=== PATIENT | female | born 1945 | race Caucasian/White ===

== ENCOUNTER 2019-11-28 09:56 | Emergency (ER) | payer OTHER ==
[~2019-11-28] VITALS: Ht 152.4 cm; Wt 72.1 kg
[2019-11-28] MEDS ORDERED: HYDR-4384 PO (10:12)
[2019-11-28] MEDS ORDERED: METF-440 PO (10:12)
[2019-11-28] MEDS ORDERED: HYDR-4354 PO (10:12)
[2019-11-28] MEDS ORDERED: TIOT18CA3 IH (10:12)
[2019-11-28] MEDS ORDERED: ALBU18HF2 IH (10:12)
[2019-11-28] MEDS ORDERED: AMIO200T4 PO (10:12)
[2019-11-28] MEDS ORDERED: BLOO-668 IN (10:12)
[2019-11-28] MEDS ORDERED: FURO-144 PO (10:12)
[2019-11-28] MEDS ORDERED: APIX2.5T PO (10:12)
[2019-11-28] MEDS ORDERED: BUDE10.2 IH (10:12)
[2019-11-28] MEDS ORDERED: PRED20TA PO (10:12)
[2019-11-28] MEDS ORDERED: ALBU2.5V13 IH (10:12)
[2019-11-28] MEDS ORDERED: IPRATROPIUM NEB FS 0.5 MG/2.5 ML AMPUL.NEB ONE (10:46)
[2019-11-28] MEDS ORDERED: ALBUTEROL FS 2.5 MG/3 ML VIAL.NEB ONE (10:46)
[2019-11-28 10:49] LABS: BASOPHILS % (AUTO) 0.4 % (0.0-2.0); EOSINOPHILS % (AUTO) 0.6 % (0.0-6.0); HEMATOCRIT 39 % (33-45); HEMOGLOBIN 12.7 g/dL (11.5-14.8); LYMPHOCYTES % (AUTO) 12.1 % (20.0-44.0); MEAN CORPUSCULAR HGB CONC 32 g/dl (31.0-36.0); MEAN CORPUSCULAR VOLUME 89 fL (82-100); MONOCYTES # (AUTO) 0.4 /CMM (0.1-1.30); MONOCYTES % (AUTO) 4.5 % (2.0-12.0); NEUTROPHILS # (AUTO) 6.9 /CMM (1.8-8.9); NEUTROPHILS % (AUTO) 82.4 % (43.0-81.0); PLATELET COUNT (AUTO) 327 /CMM (150-450); RED BLOOD CELL COUNT(AUTO) 4.41 MIL/uL (4.0-5.2); WHITE BLOOD COUNT (AUTO) 8.4 K/uL (4.3-11.0)
[2019-11-28] MEDS ORDERED: IPRATROPIUM NEB FS 0.5 MG/2.5 ML AMPUL.NEB NEB ONE (11:00)
[2019-11-28] MEDS ORDERED: ALBUTEROL FS 2.5 MG/3 ML VIAL.NEB NEB ONE (11:00)
[2019-11-28 11:07] LABS: APPEARANCE,URINE Clear (CLEAR); BILIRUBIN,URINE Negative (NEGATIVE); BLOOD, URINE Negative Ery/uL (NEGATIVE); COLOR,URINE Yellow (YELLOW); KETONES,URINE Negative (NEGATIVE); LEUKOCYTE ESTERASE ,URINE Trace (NEGATIVE); NITRITE, URINE Negative (NEGATIVE); PH,URINE 5.5 (5.0-8.0); PROTEIN,URINE Negative (NEGATIVE); UGLUCOSE Negative (NEGATIVE); UROBILINOGEN,URINE 0.2 EU/dL (0.2)
[2019-11-28 11:16] LABS: CALCIUM, SERUM 10.4 mg/dL (8.5-10.1); CARBON DIOXIDE 30 mmol/L (21-32); CHLORIDE 102 mmol/L (98-107); CREATININE 0.8 mg/dL (0.6-1.3); GLUCOSE 149 mg/dL (74-106); POTASSIUM 3.4 mmol/L (3.5-5.1); SODIUM SERUM 143 mmol/L (136-145); UREA NITROGEN, BLOOD 22 mg/dL (7-18)
[2019-11-28 11:22] LABS: ALANINE AMINOTRANSFERASE 30 U/L (12-78); ALBUMIN 3.9 g/dL (3.4-5.0); ALKALINE PHOSPHATASE 88 U/L (46-116); ASPARTATE AMINOTRANSFERASE 25 U/L (15-37); BILIRUBIN,DIRECT 0.1 mg/dL (0.0-0.2); BILIRUBIN,TOTAL 0.5 mg/dL (0.2-1.0); TOTAL PROTEIN, SERUM 8.4 g/dL (6.4-8.2)
--- NOTE | 2019-11-28 11:22 | NUR ---
TOOK OVER PT CARE. PT AAOX4. [id number], from longterm, cough and congestion x 1 week. Albuterol 5mg given on scene 92% on RA, 97 % after Treatment. Placed on monitor and pulse ox.
[2019-11-28 11:31] LABS: RBC,URINE 0-2 /HPF (0-2)
[2019-11-28 11:32] LABS: BACTERIA,URINE Few /HPF (None Seen); SQUAMOUS EPITHELIAL CELL,UR Few /HPF (None Seen)
[2019-11-28] MEDS ORDERED: methylPREDNISolone SOD SUCC 125 MG/2ML VIAL ONE (11:46)
--- NOTE | 2019-11-28 11:51 | NUR ---
CALLED NURSING FOR TELE BED.
[2019-11-28] MEDS ORDERED: IV NS 0.9% 1,000 ML BAG IV ONE ×2 (12:00)
[2019-11-28] MEDS ORDERED: methylPREDNISolone SOD SUCC 125 MG/2ML VIAL IV ONE (12:00)
[2019-11-28] MEDS ORDERED: PIPERACILLIN /TAZOBACTAM 3.375 G in IV D5W 50 ML IV ONE (12:00)
--- NOTE | 2019-11-28 12:15 | NUR ---
FOR [facility] [phone]. GENERAL NUMBER FOR IS [phone].
--- NOTE | 2019-11-28 12:21 | NUR ---
NURSING SUP GAVE TELE BED 313-2.
--- NOTE | 2019-11-28 13:01 | NUR ---
Engineering Model Maker at bedside
--- NOTE | 2019-11-28 13:06 | NUR ---
spoke with will, patient refused to go to [facility], now going to [facility] instead and patient agreed. facesheet and clinicals faxed to [phone] as requested
--- NOTE | 2019-11-28 13:08 | NUR ---
sandwich ordered from cafeteria as requested
--- NOTE | 2019-11-28 13:11 | NUR ---
CALLED ROMELIA PHAM. REINIER WAS PLACED FOR [facility]. AUTH NUMBER [id number]. NUMBER FOR ACTIVATION OF AMBULANCE [phone].
--- NOTE | 2019-11-28 13:44 | NUR ---
PATIENT RESTING COMFORTABLY. EATING.
--- NOTE | 2019-11-28 15:45 | NUR ---
CM WILL CALLED. PT IS GOING TO [address] NUMBER FOR REPORT IS [phone]. Addendum: 11/28/19 at 1553 by JOSE LUIS CM CALLED AND BED ASSIGNMENT WAS INCORRECT. WILL CALL BACK WITH CORRECT INFO AND BED ASSIGNMENT. AMBULANCE PLACED ON WILL CALL, ETA 1730.
[2019-11-28 15:54] VITALS: BP 151/80
--- NOTE | 2019-11-28 16:45 | NUR ---
FOLLOW UP WITH CM WILL AT [facility]. STILL NO TRANSFER INFO FOR PT. WILL CALL BACK FOR ROOM ASSIGNMENT.
--- NOTE | 2019-11-28 16:49 | NUR ---
CM WILL CALLED BACK. PT WILL END UP GOING TO BED ASSIGNMENT 520-B. NUMBER FOR REPORT [phone]. [facility] ETA 1730.
[2019-11-28] MEDS ORDERED: HYDROCODONE/APAP 5/325MG 1 EACH TABLET ONE (16:51)
[2019-11-28] MEDS ORDERED: HYDROCODONE/APAP 5/325MG 1 EACH TABLET PO ONE (17:00)
--- NOTE | 2019-11-28 17:09 | NUR ---
REPORT GIVEN TO TOÑO KING FOR [facility]
--- NOTE | 2019-11-28 17:36 | NUR ---
REPORT GIVEN TO CHERYL TRA[facility]
== END 2019-11-28 18:05 | disposition short-term general hospital (02) ==
LOC: ER 09:59
DX: L03.116 Cellulitis of left lower limb (principal); L03.115 Cellulitis of right lower limb; J44.1 Chronic obstructive pulmonary disease with (acute) exacerbation; R09.02 Hypoxemia; E87.2 Acidosis; I12.9 Hypertensive chronic kidney disease with stage 1 through stage 4 chronic kidney disease, or unspecified chronic kidney disease; N18.9 Chronic kidney disease, unspecified; Z88.2 Allergy status to sulfonamides
CPT/HCPCS: 36415; 71045; 80048; 80076; 81001; 83605 ×2; 84145; 84484; 85025; 85730; 87040 ×2; 87086; 87804 ×2; 93005 ×2; 94640; 96374; 99285; J2543; J2930; J7030; J7060; 81000-TC

== ENCOUNTER 2023-08-16 13:12 | Emergency (ER) | payer OTHER ==
[~2023-08-16] VITALS: Ht 154.9 cm; Wt 63.5 kg
[~2023-08-16 13:12] MED LIST: ALBU18HF2 IH; ALBU2.5V13 IH; AMIO200T5 PO; APIX2.5T PO; BLOO-668 IN; BUDE10.2 IH; FURO-144 PO; HYDR-4354 PO; HYDR-4384 PO; METF-440 PO; PRED20TA PO; TIOT18CA3 IH
[2023-08-16] MEDS ORDERED: IPRATROPIUM NEB FS 0.5 MG/2.5 ML AMPUL.NEB NEB ONE (13:30)
[2023-08-16] MEDS ORDERED: ALBUTEROL FS 2.5 MG/3 ML VIAL.NEB CONTNEB ONE ×2 (13:30→19:00)
[2023-08-16] MEDS ORDERED: methylPREDNISolone SOD SUCC 125 MG/2ML VIAL IV ONE (13:30)
[2023-08-16] MEDS ORDERED: methylPREDNISolone SOD SUCC 125 MG/2ML VIAL ONE (13:35)
[2023-08-16] MEDS ORDERED: ALBUTEROL FS 2.5 MG/3 ML VIAL.NEB ONE ×2 (13:52→19:21)
[2023-08-16] MEDS ORDERED: IPRATROPIUM NEB FS 0.5 MG/2.5 ML AMPUL.NEB ONE ×2 (13:52→19:21)
[2023-08-16 14:00] VITALS: O2SAT 99
[2023-08-16 14:11] LABS: BASOPHILS # (AUTO) 0.1 K/uL (0.0-0.2); EOSINOPHILS # (AUTO) 0.2 K/uL (0.0-0.7); EOSINOPHILS % (AUTO) 2.1 % (0.0-6.0); HEMATOCRIT 30 % (33-45); HEMOGLOBIN 9.3 g/dL (11.5-14.8); LYMPHOCYTES # (AUTO) 1.4 K/uL (0.8-4.8); LYMPHOCYTES % (AUTO) 15.4 % (20.0-44.0); MEAN CORPUSCULAR HEMOGLOBIN 26 PG (26.0-33.0); MEAN CORPUSCULAR HGB CONC 31 g/dl (31.0-36.0); MEAN CORPUSCULAR VOLUME 82 fL (82-100); MONOCYTES % (AUTO) 11.3 % (2.0-12.0); NEUTROPHILS # (AUTO) 6.5 K/uL (1.8-8.9); NEUTROPHILS % (AUTO) 70.2 % (43.0-81.0); PLATELET COUNT (AUTO) 571 K/uL (150-450); RED BLOOD CELL COUNT(AUTO) 3.66 MIL/uL (4.0-5.2); WHITE BLOOD COUNT (AUTO) 9.2 K/uL (4.3-11.0)
[2023-08-16 14:20] VITALS: O2SAT 100
[2023-08-16 14:40] LABS: CALCIUM, SERUM 9.2 mg/dL (8.5-10.1); CARBON DIOXIDE 29 mmol/L (21-32); CHLORIDE 104 mmol/L (98-107); CREATININE 0.6 mg/dL (0.6-1.3); GLUCOSE 140 mg/dL (74-106); SODIUM SERUM 139 mmol/L (136-145); UREA NITROGEN, BLOOD 15 mg/dL (7-18)
[2023-08-16 14:47] LABS: ALANINE AMINOTRANSFERASE 21 U/L (12-78); ALBUMIN 2.9 g/dL (3.4-5.0); ALKALINE PHOSPHATASE 84 U/L (46-116); ASPARTATE AMINOTRANSFERASE 18 U/L (15-37); BILIRUBIN,DIRECT 0.1 mg/dL (0.0-0.2); BILIRUBIN,TOTAL 0.5 mg/dL (0.2-1.0); TOTAL PROTEIN, SERUM 7.4 g/dL (6.4-8.2)
[2023-08-16] MEDS ORDERED: HYDROCODONE/APAP 5/325MG TABLET ONE (16:07)
[2023-08-16] MEDS: HYDROCODONE/APAP 5/325MG TABLET PO ONE ×2 (16:12→16:13)
[2023-08-16] MEDS ORDERED: ALBUTEROL FS 2.5 MG/3 ML VIAL.NEB NEB ONE (19:00)
[2023-08-16 19:26] VITALS: O2SAT 96
[2023-08-16 20:06] VITALS: BP 134/86; TEMP 98; O2SAT 97
[2023-08-25] MEDS ORDERED: PRED20TA PO (10:09)
[2023-08-25] MEDS ORDERED: IPRA0.2S9 NEB (10:09)
[2023-08-25] MEDS ORDERED: ACET325T53 PO (10:09)
[2023-08-25] MEDS ORDERED: LEVA1.2524 NEB (10:09)
[2023-08-25] MEDS ORDERED: PRED5TAB48 PO (10:09)
[2023-08-25] MEDS ORDERED: DOXY-326 PO (10:09)
[2023-08-25] MEDS ORDERED: Hydrocodone/Apap 5/325MG PO (10:09)
== END 2023-08-16 20:06 | disposition home or self-care (01) ==
LOC: ER 13:12
DX: J44.1 Chronic obstructive pulmonary disease with (acute) exacerbation (principal); I12.9 Hypertensive chronic kidney disease with stage 1 through stage 4 chronic kidney disease, or unspecified chronic kidney disease; N18.2 Chronic kidney disease, stage 2 (mild); I48.91 Unspecified atrial fibrillation; M19.90 Unspecified osteoarthritis, unspecified site; Z79.899 Other long term (current) drug therapy; Z20.822 Contact with and (suspected) exposure to COVID-19
CPT/HCPCS: 99285; 96374; 71045; 87426; 93005; 85025; 80048; 80076; 36415; 84484; 83880; 94799; 94640 ×2; J2930; C9803

== ENCOUNTER 2023-08-19 10:11 | Inpatient (IN) | payer OTHER ==
[~2023-08-19] VITALS: Ht 152.4 cm; Wt 59.0 kg
[2023-08-19] MEDS ORDERED: MAGN400T26 PO (10:35)
[2023-08-19] MEDS ORDERED: MONT10TA22 PO (10:35)
[2023-08-19] MEDS ORDERED: DILT-3 PO (10:35)
[2023-08-19] MEDS ORDERED: CLOP75TA15 PO (10:35)
[2023-08-19] MEDS ORDERED: CHOL100043 PO (10:35)
[2023-08-19] MEDS ORDERED: LUTE10TA PO (10:35)
[2023-08-19] MEDS ORDERED: MELA3TAB41 PO (10:35)
[2023-08-19 10:51] LABS: BASOPHILS # (AUTO) 0.4 K/uL (0.0-0.2); EOSINOPHILS # (AUTO) 0.2 K/uL (0.0-0.7); EOSINOPHILS % (AUTO) 1.7 % (0.0-6.0); HEMATOCRIT 32 % (33-45); HEMOGLOBIN 9.9 g/dL (11.5-14.8); LYMPHOCYTES # (AUTO) 1.1 K/uL (0.8-4.8); LYMPHOCYTES % (AUTO) 12.6 % (20.0-44.0); MEAN CORPUSCULAR HEMOGLOBIN 25 PG (26.0-33.0); MEAN CORPUSCULAR HGB CONC 32 g/dl (31.0-36.0); MEAN CORPUSCULAR VOLUME 80 fL (82-100); MONOCYTES # (AUTO) 1.1 K/uL (0.1-1.30); MONOCYTES % (AUTO) 12.3 % (2.0-12.0); NEUTROPHILS # (AUTO) 6.3 K/uL (1.8-8.9); NEUTROPHILS % (AUTO) 69.4 % (43.0-81.0); PLATELET COUNT (AUTO) 628 K/uL (150-450); RED BLOOD CELL COUNT(AUTO) 3.93 MIL/uL (4.0-5.2); RED CELL DISTRIBUTION WIDTH 17.5 % (11.5-15.0)
[2023-08-19 11:18] LABS: ALANINE AMINOTRANSFERASE 24 U/L (12-78); ALBUMIN 3.1 g/dL (3.4-5.0); ALKALINE PHOSPHATASE 86 U/L (46-116); ASPARTATE AMINOTRANSFERASE 17 U/L (15-37); BILIRUBIN,DIRECT 0.1 mg/dL (0.0-0.2); BILIRUBIN,TOTAL 0.5 mg/dL (0.2-1.0); CALCIUM, SERUM 9.3 mg/dL (8.5-10.1); CARBON DIOXIDE 27 mmol/L (21-32); CHLORIDE 103 mmol/L (98-107); CREATININE 0.7 mg/dL (0.6-1.3); GLUCOSE 109 mg/dL (74-106); SODIUM SERUM 139 mmol/L (136-145); TOTAL PROTEIN, SERUM 7.6 g/dL (6.4-8.2); UREA NITROGEN, BLOOD 18 mg/dL (7-18)
[2023-08-19] MEDS ORDERED: VANCOMYCIN 1 GM in IV D5W 250 ML IV ONE (12:00)
[2023-08-19] MEDS ORDERED: CEFTRIAXONE 1 G in IV D5W 50 ML IV ONE (12:00)
[2023-08-19] MEDS ORDERED: ALBUTEROL FS 2.5 MG/3 ML VIAL.NEB ONE (13:14)
[2023-08-19 13:21] VITALS: O2SAT 97
[2023-08-19] MEDS ORDERED: ALBUTEROL FS 2.5 MG/3 ML VIAL.NEB NEB ONE (13:30)
[2023-08-19 13:31] VITALS: O2SAT 100
[2023-08-19] MEDS ORDERED: Z GUARD REMEDY 4 OZ OINT TP PRN (16:00)
[2023-08-19] MEDS ORDERED: MORPHINE SULFATE INJ 2 MG/ML DISP.SYRIN IV PRN (16:00)
[2023-08-19] MEDS ORDERED: ONDANSETRON HCL/PF 4 MG/2 ML VIAL IVP PRN (16:00)
[2023-08-19] MEDS ORDERED: CEFTRIAXONE 2 G in IV D5W 100 ML IV SCH (16:00)
[2023-08-19] MEDS ORDERED: ZOLPIDEM TARTRATE 5 MG TABLET PO PRN (16:00)
[2023-08-19] MEDS ORDERED: ACETAMINOPHEN 325 MG TABLET PO PRN (16:00)
[2023-08-19] MEDS ORDERED: MAGNESIUM HYDROXIDE 30 ML UDC PO PRN (16:00)
[2023-08-19] MEDS ORDERED: ENOXAPARIN SODIUM 40 MG/0.4 ML DISP.SYRIN SQ SCH (16:00)
[2023-08-19 18:10] VITALS: O2SAT 99
[2023-08-19] MEDS: IPRATROPIUM NEB FS 0.5 MG/2.5 ML AMPUL.NEB NEB PRN ×2 (18:10→23:45)
[2023-08-19] MEDS: LEVALBUTEROL HCL NEB 1.25 MG/0.5 ML VIAL.NEB NEB PRN ×2 (18:10→23:45)
[2023-08-19 18:33] VITALS: O2SAT 100
[2023-08-19 21:19] VITALS: BP 121/70; TEMP 98.1; O2SAT 100
[2023-08-19] MEDS: HYDROCODONE/APAP 5/325MG TABLET PO PRN (21:57)
[2023-08-19] MEDS: VANCOMYCIN 500 MG in IV D5W 100ml IV SCH (23:22)
[2023-08-19 23:46] VITALS: O2SAT 99
[2023-08-20] VITALS (9 sets, daily range): BP systolic 110–123; BP diastolic 74–79; TEMP 98–98.3; O2SAT 94–100
[2023-08-20] MEDS: HYDROCODONE/APAP 5/325MG TABLET PO PRN ×2 (04:02→13:44)
[2023-08-20] MEDS: LEVALBUTEROL HCL NEB 1.25 MG/0.5 ML VIAL.NEB NEB PRN ×2 (06:35→14:30)
[2023-08-20] MEDS: IPRATROPIUM NEB FS 0.5 MG/2.5 ML AMPUL.NEB NEB PRN ×2 (06:36→14:30)
[2023-08-20] MEDS: CLOPIDOGREL BISULFATE 75 MG TABLET PO SCH (08:14)
[2023-08-20] MEDS: DILTIAZEM HCL CD 240 MG PO SCH (08:14)
[2023-08-20] MEDS: CHOLECALCIFEROL 1,000 UNIT TABLET (VIT D3) PO SCH (08:14)
[2023-08-20] MEDS: MONTELUKAST SODIUM (10MG) 10 MG TABLET PO SCH (08:14)
[2023-08-20] MEDS: FUROSEMIDE 40 MG TABLET PO SCH (08:14)
[2023-08-20 09:28] LABS: BASOPHILS # (AUTO) 0.1 K/uL (0.0-0.2); BASOPHILS % (AUTO) 1.4 % (0.0-2.0); EOSINOPHILS # (AUTO) 0.2 K/uL (0.0-0.7); EOSINOPHILS % (AUTO) 2.7 % (0.0-6.0); HEMATOCRIT 32 % (33-45); HEMOGLOBIN 9.8 g/dL (11.5-14.8); LYMPHOCYTES # (AUTO) 1.2 K/uL (0.8-4.8); LYMPHOCYTES % (AUTO) 14.4 % (20.0-44.0); MEAN CORPUSCULAR HEMOGLOBIN 25 PG (26.0-33.0); MEAN CORPUSCULAR HGB CONC 31 g/dl (31.0-36.0); MEAN CORPUSCULAR VOLUME 83 fL (82-100); MONOCYTES # (AUTO) 0.8 K/uL (0.1-1.30); MONOCYTES % (AUTO) 9.9 % (2.0-12.0); NEUTROPHILS # (AUTO) 6.1 K/uL (1.8-8.9); NEUTROPHILS % (AUTO) 71.6 % (43.0-81.0); PLATELET COUNT (AUTO) 528 K/uL (150-450); RED BLOOD CELL COUNT(AUTO) 3.89 MIL/uL (4.0-5.2); RED CELL DISTRIBUTION WIDTH 18.1 % (11.5-15.0); WHITE BLOOD COUNT (AUTO) 8.5 K/uL (4.3-11.0)
[2023-08-20 09:40] LABS: CALCIUM, SERUM 8.9 mg/dL (8.5-10.1); CREATININE 0.7 mg/dL (0.6-1.3); MAGNESIUM 2.3 mg/dL (1.8-2.4); PHOSPHORUS 3.6 mg/dL (2.5-4.9); POTASSIUM 3.9 mmol/L (3.5-5.1)
[2023-08-20 09:53] LABS: THYROID STIMULATING HORMONE 2.321 uIU/mL (0.358-3.74)
[2023-08-20] MEDS ORDERED: CEFTRIAXONE 2 G in IV D5W 100 ML IV SCH (12:00)
[2023-08-20] MEDS: VANCOMYCIN 500 MG in IV D5W 100ml IV SCH ×2 (12:14→23:45)
[2023-08-20] MEDS ORDERED: hydrOXYzine PAMOATE 25 MG CAPSULE PO ONE (15:30)
[2023-08-20] MEDS ORDERED: Magnesium 1GM/D5W 100ML PREMIX PIGGYBACK IV ONE (15:30)
[2023-08-20] MEDS ORDERED: Magnesium 1GM/D5W 100ML PREMIX 100 ML IV SCH (16:00)
[2023-08-20] MEDS: methylPREDNISolone SOD SUCC 40 MG/ML VIAL IV SCH ×2 (16:56→23:45)
[2023-08-20] MEDS ORDERED: RIVAROXABAN 15 MG TABLET PO SCH (17:00)
[2023-08-20] MEDS: CEFEPIME 1 GM in IV D5W 50 ML IV SCH (17:16)
[2023-08-20] MEDS: IPRATROPIUM NEB FS 0.5 MG/2.5 ML AMPUL.NEB NEB SCH (20:25)
[2023-08-20] MEDS: LEVALBUTEROL HCL NEB 1.25 MG/0.5 ML VIAL.NEB NEB SCH (20:25)
[2023-08-21] VITALS (11 sets, daily range): BP systolic 110–127; BP diastolic 59–78; TEMP 97.9–98.5; O2SAT 95–100
[2023-08-21] MEDS: IPRATROPIUM NEB FS 0.5 MG/2.5 ML AMPUL.NEB NEB SCH ×4 (01:02→20:01)
[2023-08-21] MEDS: LEVALBUTEROL HCL NEB 1.25 MG/0.5 ML VIAL.NEB NEB SCH ×4 (01:03→20:02)
[2023-08-21] MEDS: CEFEPIME 1 GM in IV D5W 50 ML IV SCH ×3 (01:05→16:12)
[2023-08-21 06:28] LABS: HEMATOCRIT 30 % (33-45); HEMOGLOBIN 9.5 g/dL (11.5-14.8); LYMPHOCYTES # (AUTO) 0.3 K/uL (0.8-4.8); LYMPHOCYTES % (AUTO) 3.7 % (20.0-44.0); MEAN CORPUSCULAR HEMOGLOBIN 25 PG (26.0-33.0); MEAN CORPUSCULAR HGB CONC 31 g/dl (31.0-36.0); MEAN CORPUSCULAR VOLUME 81 fL (82-100); MONOCYTES # (AUTO) 0.1 K/uL (0.1-1.30); MONOCYTES % (AUTO) 1.2 % (2.0-12.0); NEUTROPHILS # (AUTO) 6.9 K/uL (1.8-8.9); NEUTROPHILS % (AUTO) 95.1 % (43.0-81.0); PLATELET COUNT (AUTO) 515 K/uL (150-450); RED BLOOD CELL COUNT(AUTO) 3.75 MIL/uL (4.0-5.2); RED CELL DISTRIBUTION WIDTH 17.1 % (11.5-15.0); WHITE BLOOD COUNT (AUTO) 7.3 K/uL (4.3-11.0)
[2023-08-21 07:05] LABS: CALCIUM, SERUM 9.1 mg/dL (8.5-10.1); CREATININE 0.7 mg/dL (0.6-1.3); MAGNESIUM 2.7 mg/dL (1.8-2.4); PHOSPHORUS 3.5 mg/dL (2.5-4.9); POTASSIUM 3.9 mmol/L (3.5-5.1)
[2023-08-21] MEDS: CLOPIDOGREL BISULFATE 75 MG TABLET PO SCH (08:12)
[2023-08-21] MEDS: methylPREDNISolone SOD SUCC 40 MG/ML VIAL IV SCH ×2 (08:12→15:11)
[2023-08-21] MEDS: MONTELUKAST SODIUM (10MG) 10 MG TABLET PO SCH (08:12)
[2023-08-21] MEDS: FUROSEMIDE 40 MG TABLET PO SCH (08:13)
[2023-08-21] MEDS: CHOLECALCIFEROL 1,000 UNIT TABLET (VIT D3) PO SCH (08:13)
[2023-08-21] MEDS: DILTIAZEM HCL CD 240 MG PO SCH (08:13)
[2023-08-21] MEDS: VANCOMYCIN 500 MG in IV D5W 100ml IV SCH (11:24)
[2023-08-21] MEDS: HYDROCODONE/APAP 5/325MG TABLET PO PRN (14:28)
[2023-08-21] MEDS: SOD FERRIC GLUC 125 MG in IV NS 0.9% 100 ML IV SCH (15:03)
[2023-08-21] MEDS: HEPARIN SODIUM, PORCINE 5000 UNITS/1 ML VIAL SQ SCH (21:00)
[2023-08-22] VITALS (10 sets, daily range): BP systolic 116–131; BP diastolic 56–78; TEMP 97.7–98.1; O2SAT 95–100
[2023-08-22] MEDS: methylPREDNISolone SOD SUCC 40 MG/ML VIAL IV SCH ×4 (00:23→23:27)
[2023-08-22] MEDS: VANCOMYCIN 500 MG in IV D5W 100ml IV SCH ×2 (00:23→20:18)
[2023-08-22] MEDS: CEFEPIME 1 GM in IV D5W 50 ML IV SCH ×3 (01:32→17:33)
[2023-08-22] MEDS: IPRATROPIUM NEB FS 0.5 MG/2.5 ML AMPUL.NEB NEB SCH ×4 (01:52→19:41)
[2023-08-22] MEDS: LEVALBUTEROL HCL NEB 1.25 MG/0.5 ML VIAL.NEB NEB SCH ×4 (01:52→19:41)
[2023-08-22] MEDS: CHOLECALCIFEROL 1,000 UNIT TABLET (VIT D3) PO SCH (08:26)
[2023-08-22] MEDS: MONTELUKAST SODIUM (10MG) 10 MG TABLET PO SCH (08:26)
[2023-08-22] MEDS: FUROSEMIDE 40 MG TABLET PO SCH (08:26)
[2023-08-22] MEDS: DILTIAZEM HCL CD 240 MG PO SCH (08:37)
[2023-08-22] MEDS: CLOPIDOGREL BISULFATE 75 MG TABLET PO SCH (09:00)
[2023-08-22] MEDS: HEPARIN SODIUM, PORCINE 5000 UNITS/1 ML VIAL SQ SCH ×2 (09:00→20:19)
[2023-08-22] MEDS: HYDROCODONE/APAP 5/325MG TABLET PO PRN (09:18)
[2023-08-22 11:11] LABS: CALCIUM, SERUM 9.6 mg/dL (8.5-10.1); CARBON DIOXIDE 26 mmol/L (21-32); CHLORIDE 101 mmol/L (98-107); CREATININE 0.8 mg/dL (0.6-1.3); GLUCOSE 201 mg/dL (74-106); POTASSIUM 3.4 mmol/L (3.5-5.1); SODIUM SERUM 139 mmol/L (136-145); UREA NITROGEN, BLOOD 11 mg/dL (7-18)
[2023-08-22 11:18] LABS: ALANINE AMINOTRANSFERASE 22 U/L (12-78); ALBUMIN 3.5 g/dL (3.4-5.0); ALKALINE PHOSPHATASE 93 U/L (46-116); ASPARTATE AMINOTRANSFERASE 9 U/L (15-37); BILIRUBIN,TOTAL 0.6 mg/dL (0.2-1.0); TOTAL PROTEIN, SERUM 8.4 g/dL (6.4-8.2)
[2023-08-22] MEDS: SOD FERRIC GLUC 125 MG in IV NS 0.9% 100 ML IV SCH (18:10)
[2023-08-23] VITALS (13 sets, daily range): BP systolic 107–125; BP diastolic 51–72; TEMP 97.4–98.1; O2SAT 95–100
[2023-08-23] MEDS: CEFEPIME 1 GM in IV D5W 50 ML IV SCH ×3 (00:21→17:50)
[2023-08-23] MEDS: LEVALBUTEROL HCL NEB 1.25 MG/0.5 ML VIAL.NEB NEB SCH ×4 (02:29→20:11)
[2023-08-23] MEDS: IPRATROPIUM NEB FS 0.5 MG/2.5 ML AMPUL.NEB NEB SCH ×4 (02:29→20:11)
[2023-08-23 06:48] LABS: BASOPHILS % (AUTO) 0.1 % (0.0-2.0); HEMATOCRIT 31 % (33-45); HEMOGLOBIN 9.6 g/dL (11.5-14.8); LYMPHOCYTES # (AUTO) 0.3 K/uL (0.8-4.8); LYMPHOCYTES % (AUTO) 2.9 % (20.0-44.0); MEAN CORPUSCULAR HEMOGLOBIN 26 PG (26.0-33.0); MEAN CORPUSCULAR HGB CONC 31 g/dl (31.0-36.0); MEAN CORPUSCULAR VOLUME 81 fL (82-100); MONOCYTES # (AUTO) 0.3 K/uL (0.1-1.30); MONOCYTES % (AUTO) 3.2 % (2.0-12.0); NEUTROPHILS # (AUTO) 10.2 K/uL (1.8-8.9); NEUTROPHILS % (AUTO) 93.8 % (43.0-81.0); PLATELET COUNT (AUTO) 476 K/uL (150-450); RED BLOOD CELL COUNT(AUTO) 3.78 MIL/uL (4.0-5.2); RED CELL DISTRIBUTION WIDTH 17.7 % (11.5-15.0); WHITE BLOOD COUNT (AUTO) 10.8 K/uL (4.3-11.0)
[2023-08-23] MEDS ORDERED: BUPIVACAINE 0.5 % PF 150 MG/30 ML VIAL ONE (06:59)
[2023-08-23] MEDS ORDERED: LIDOCAINE 1% INJ 50 ML MDV IJ ONE (06:59)
[2023-08-23] MEDS ORDERED: LIDOCAINE HCL/MPF 1% 30 ML VIAL IJ ONE (06:59)
[2023-08-23] MEDS ORDERED: LIDOCAINE MPF 1%-EPI 1:200,000 30 ML VIAL IJ ONE (07:00)
[2023-08-23 07:05] LABS: CREATININE 0.7 mg/dL (0.6-1.3); MAGNESIUM 2.6 mg/dL (1.8-2.4); PHOSPHORUS 3.4 mg/dL (2.5-4.9); POTASSIUM 3.4 mmol/L (3.5-5.1)
[2023-08-23] MEDS ORDERED: FENTANYL PF 100MCG/2ML AMPUL ONE (07:36)
[2023-08-23] MEDS ORDERED: MIDAZOLAM HCL 2 MG/2ML VIAL ONE (07:37)
[2023-08-23] MEDS ORDERED: VANCOMYCIN 1 GM VIAL ONE (07:52)
[2023-08-23] MEDS: methylPREDNISolone SOD SUCC 40 MG/ML VIAL IV SCH ×2 (08:00→17:52)
[2023-08-23] MEDS: VANCOMYCIN 500 MG in IV D5W 100ml IV SCH ×2 (08:00→20:31)
[2023-08-23] MEDS: DILTIAZEM HCL CD 240 MG PO SCH (09:00)
[2023-08-23] MEDS: CHOLECALCIFEROL 1,000 UNIT TABLET (VIT D3) PO SCH (09:00)
[2023-08-23] MEDS: FUROSEMIDE 40 MG TABLET PO SCH (09:00)
[2023-08-23] MEDS: HEPARIN SODIUM, PORCINE 5000 UNITS/1 ML VIAL SQ SCH ×3 (09:00→21:00)
[2023-08-23] MEDS: MONTELUKAST SODIUM (10MG) 10 MG TABLET PO SCH (09:00)
[2023-08-23] MEDS: CLOPIDOGREL BISULFATE 75 MG TABLET PO SCH (09:00)
[2023-08-23 09:14] LABS: ANISOCYTOSIS 1+; OVALOCYTES 1+; PLATELET ESTIMATE INCREASED; TARGET CELLS 1+
[2023-08-23] MEDS: HYDROCODONE/APAP 5/325MG TABLET PO PRN ×2 (10:15→18:35)
[2023-08-23] MEDS ORDERED: POTASSIUM CHLORIDE 20 MEQ POWDER PACKET GT ONE (12:00)
[2023-08-23] MEDS ORDERED: DEXTROSE 50%-WATER 50 ML DISP.SYRIN IV PRN (13:30)
[2023-08-23] MEDS: SOD FERRIC GLUC 125 MG in IV NS 0.9% 100 ML IV SCH (15:11)
[2023-08-23] MEDS ORDERED: IV NS 0.9% 250 ML IV PRN (17:00)
[2023-08-23] MEDS: INSULIN REGULAR, HUMAN 100 UNIT/ML 3 ML VIAL SQ PRN ×3 (17:34→22:06)
[2023-08-23] MEDS: BLOOD SUGAR DIAGNOSTIC 1 EACH STRIP IN SCH ×2 (17:35→21:56)
[2023-08-24] VITALS (11 sets, daily range): BP systolic 97–149; BP diastolic 70–92; TEMP 97.2–98.4; O2SAT 92–99
[2023-08-24] MEDS: CEFEPIME 1 GM in IV D5W 50 ML IV SCH ×3 (00:55→16:16)
[2023-08-24] MEDS: LEVALBUTEROL HCL NEB 1.25 MG/0.5 ML VIAL.NEB NEB SCH ×4 (01:15→20:04)
[2023-08-24] MEDS: IPRATROPIUM NEB FS 0.5 MG/2.5 ML AMPUL.NEB NEB SCH ×4 (01:15→20:04)
[2023-08-24] MEDS: INSULIN REGULAR, HUMAN 100 UNIT/ML 3 ML VIAL SQ PRN ×4 (06:57→21:30)
[2023-08-24] MEDS: BLOOD SUGAR DIAGNOSTIC 1 EACH STRIP IN SCH ×4 (06:57→21:26)
[2023-08-24] MEDS: VANCOMYCIN 500 MG in IV D5W 100ml IV SCH (08:18)
[2023-08-24] MEDS: CHOLECALCIFEROL 1,000 UNIT TABLET (VIT D3) PO SCH (08:30)
[2023-08-24] MEDS: CLOPIDOGREL BISULFATE 75 MG TABLET PO SCH (08:30)
[2023-08-24] MEDS: FUROSEMIDE 40 MG TABLET PO SCH (08:30)
[2023-08-24] MEDS: MONTELUKAST SODIUM (10MG) 10 MG TABLET PO SCH (08:30)
[2023-08-24] MEDS: DILTIAZEM HCL CD 240 MG PO SCH (08:30)
[2023-08-24] MEDS: methylPREDNISolone SOD SUCC 40 MG/ML VIAL IV SCH ×2 (08:30→16:21)
[2023-08-24] MEDS: HEPARIN SODIUM, PORCINE 5000 UNITS/1 ML VIAL SQ SCH ×2 (08:48→21:38)
[2023-08-24 09:42] LABS: BASOPHILS % (AUTO) 0.1 % (0.0-2.0); EOSINOPHILS % (AUTO) 0.1 % (0.0-6.0); HEMATOCRIT 32 % (33-45); HEMOGLOBIN 9.7 g/dL (11.5-14.8); LYMPHOCYTES # (AUTO) 0.6 K/uL (0.8-4.8); MEAN CORPUSCULAR HEMOGLOBIN 25 PG (26.0-33.0); MEAN CORPUSCULAR HGB CONC 31 g/dl (31.0-36.0); MEAN CORPUSCULAR VOLUME 81 fL (82-100); MONOCYTES # (AUTO) 0.9 K/uL (0.1-1.30); MONOCYTES % (AUTO) 6.8 % (2.0-12.0); NEUTROPHILS # (AUTO) 11.3 K/uL (1.8-8.9); PLATELET COUNT (AUTO) 458 K/uL (150-450); RED BLOOD CELL COUNT(AUTO) 3.92 MIL/uL (4.0-5.2); RED CELL DISTRIBUTION WIDTH 18.2 % (11.5-15.0); WHITE BLOOD COUNT (AUTO) 12.9 K/uL (4.3-11.0)
[2023-08-24 09:51] LABS: CREATININE 0.7 mg/dL (0.6-1.3); POTASSIUM 4.1 mmol/L (3.5-5.1)
[2023-08-24] MEDS: SOD FERRIC GLUC 125 MG in IV NS 0.9% 100 ML IV SCH (14:56)
[2023-08-25] VITALS (8 sets, daily range): BP systolic 115–134; BP diastolic 77–98; TEMP 98.3; O2SAT 98–100
[2023-08-25] MEDS: CEFEPIME 1 GM in IV D5W 50 ML IV SCH ×2 (00:02→08:27)
[2023-08-25] MEDS: IPRATROPIUM NEB FS 0.5 MG/2.5 ML AMPUL.NEB NEB SCH ×3 (01:52→13:15)
[2023-08-25] MEDS: LEVALBUTEROL HCL NEB 1.25 MG/0.5 ML VIAL.NEB NEB SCH ×3 (01:52→13:15)
[2023-08-25] MEDS: BLOOD SUGAR DIAGNOSTIC 1 EACH STRIP IN SCH ×2 (06:34→13:11)
[2023-08-25] MEDS: CLOPIDOGREL BISULFATE 75 MG TABLET PO SCH (08:26)
[2023-08-25] MEDS: DILTIAZEM HCL CD 240 MG PO SCH (08:26)
[2023-08-25] MEDS: methylPREDNISolone SOD SUCC 40 MG/ML VIAL IV SCH (08:27)
[2023-08-25] MEDS: FUROSEMIDE 40 MG TABLET PO SCH (08:27)
[2023-08-25] MEDS: MONTELUKAST SODIUM (10MG) 10 MG TABLET PO SCH (08:27)
[2023-08-25] MEDS: CHOLECALCIFEROL 1,000 UNIT TABLET (VIT D3) PO SCH (08:27)
[2023-08-25] MEDS: HEPARIN SODIUM, PORCINE 5000 UNITS/1 ML VIAL SQ SCH (08:29)
[2023-08-25] MEDS: INSULIN REGULAR, HUMAN 100 UNIT/ML 3 ML VIAL SQ PRN ×2 (08:31→13:14)
[2023-08-25 08:34] LABS: BASOPHILS % (AUTO) 0.2 % (0.0-2.0); EOSINOPHILS % (AUTO) 0.1 % (0.0-6.0); HEMATOCRIT 33 % (33-45); HEMOGLOBIN 10.3 g/dL (11.5-14.8); LYMPHOCYTES # (AUTO) 0.7 K/uL (0.8-4.8); LYMPHOCYTES % (AUTO) 6.1 % (20.0-44.0); MEAN CORPUSCULAR HEMOGLOBIN 25 PG (26.0-33.0); MEAN CORPUSCULAR HGB CONC 31 g/dl (31.0-36.0); MEAN CORPUSCULAR VOLUME 81 fL (82-100); MONOCYTES % (AUTO) 8.6 % (2.0-12.0); NEUTROPHILS # (AUTO) 9.6 K/uL (1.8-8.9); PLATELET COUNT (AUTO) 453 K/uL (150-450); RED BLOOD CELL COUNT(AUTO) 4.11 MIL/uL (4.0-5.2); RED CELL DISTRIBUTION WIDTH 17.9 % (11.5-15.0); WHITE BLOOD COUNT (AUTO) 11.3 K/uL (4.3-11.0)
[2023-08-25 08:52] LABS: CALCIUM, SERUM 9.4 mg/dL (8.5-10.1); CARBON DIOXIDE 31 mmol/L (21-32); CHLORIDE 101 mmol/L (98-107); CREATININE 0.8 mg/dL (0.6-1.3); GLUCOSE 198 mg/dL (74-106); POTASSIUM 3.3 mmol/L (3.5-5.1); SODIUM SERUM 139 mmol/L (136-145); UREA NITROGEN, BLOOD 19 mg/dL (7-18)
[2023-08-25] MEDS ORDERED: POTASSIUM CHLORIDE 20 MEQ TAB.PRT.SR PO SCH (10:00)
[2023-08-25] MEDS ORDERED: LEVA1.2524 NEB (10:09)
[2023-08-25] MEDS ORDERED: PRED20TA PO (10:09)
[2023-08-25] MEDS ORDERED: DOXY-326 PO (10:09)
[2023-08-25] MEDS ORDERED: IPRA0.2S9 NEB (10:09)
[2023-08-25] MEDS ORDERED: Hydrocodone/Apap 5/325MG PO (10:09)
[2023-08-25] MEDS ORDERED: PRED5TAB48 PO (10:09)
[2023-08-25] MEDS ORDERED: ACET325T53 PO (10:09)
== END 2023-08-25 14:05 | DRG 982 ==
LOC: ER 10:21 → MEDSG1 15:33 → TELE1 18:00 → MEDSG1 18:24
PROVIDERS: ADMIT Nurse Practitioner Family; ATTEND Nurse Practitioner Acute Care
PROC: 0H9LXZZ Drainage of Left Lower Leg Skin, External Approach (ICD-10-PCS; principal; 2023-08-19)
PROC: 05H633Z Insertion of Infusion Device into Left Subclavian Vein, Percutaneous Approach (ICD-10-PCS; 2023-08-22)
PROC: B547ZZA Ultrasonography of Left Subclavian Vein, Guidance (ICD-10-PCS; 2023-08-22)
PROC: 0KBT0ZZ Excision of Left Lower Leg Muscle, Open Approach (ICD-10-PCS; 2023-08-23)
DX: E11.52 Type 2 diabetes mellitus with diabetic peripheral angiopathy with gangrene (principal); E44.1 Mild protein-calorie malnutrition; I13.0 Hypertensive heart and chronic kidney disease with heart failure and stage 1 through stage 4 chronic kidney disease, or unspecified chronic kidney disease; L03.116 Cellulitis of left lower limb; J44.1 Chronic obstructive pulmonary disease with (acute) exacerbation; L02.416 Cutaneous abscess of left lower limb; I96 Gangrene, not elsewhere classified; N18.2 Chronic kidney disease, stage 2 (mild); I50.9 Heart failure, unspecified; D50.9 Iron deficiency anemia, unspecified; E11.42 Type 2 diabetes mellitus with diabetic polyneuropathy; E78.5 Hyperlipidemia, unspecified; E88.09 Other disorders of plasma-protein metabolism, not elsewhere classified; I48.91 Unspecified atrial fibrillation; Z79.84 Long term (current) use of oral hypoglycemic drugs; D75.838 Other thrombocytosis; Z79.01 Long term (current) use of anticoagulants; Z88.2 Allergy status to sulfonamides; Z87.891 Personal history of nicotine dependence; D75.839 Thrombocytosis, unspecified; E11.22 Type 2 diabetes mellitus with diabetic chronic kidney disease; S80.12XA Contusion of left lower leg, initial encounter; X58.XXXA Exposure to other specified factors, initial encounter; Y93.9 Activity, unspecified; Y92.89 Other specified places as the place of occurrence of the external cause; M19.90 Unspecified osteoarthritis, unspecified site; Z66 Do not resuscitate; Z68.25 Body mass index [BMI] 25.0-25.9, adult; Z79.899 Other long term (current) drug therapy
CPT/HCPCS: 36410; 36415; 71045-TC; 73590-TC; 80048-TC; 80053-TC; 80076-TC; 80202-TC; 82728-TC; 82962-TC; 83540-TC; 83735-TC; 83880; 84100-TC; 84443-TC; 84484-TC; 85025-TC; 86850-TC; 93926-TC; 93970-TC; 93971-TC; 94762-TC; 94799-TC; 97112-TC; 97116-TC; 97530-TC; A4217; A4223; A6209; A6253; A6403; A6407; G0378; J0692; J0696; J1644; J1815; J2250; J2405; J2704; J2916; J2920; J3010; J3370; J3475; J3490; J7030; J7050; J7060; Q0177